=== PATIENT | male | born 1990 | race African-American/Black ===

== ENCOUNTER 2017-09-28 17:29 | Emergency (ER) | payer MEDICAID ==
[~2017-09-28] VITALS: Ht 182.9 cm; Wt 69.0 kg
[2017-09-28] MEDS ORDERED: HYDROCODONE/ACETAMINOPHEN 5/325MG TABLET PO ONE (18:30)
[2017-09-28] MEDS ORDERED: ONDANSETRON 4MG ODT PO ONE (20:45)
[2017-09-28 22:15] VITALS: BP 157/102
== END 2017-09-28 22:15 | disposition home or self-care (01) ==
LOC: ER 18:49
DX: S52.572A Other intraarticular fracture of lower end of left radius, initial encounter for closed fracture (principal); S52.615A Nondisplaced fracture of left ulna styloid process, initial encounter for closed fracture; W01.0XXA Fall on same level from slipping, tripping and stumbling without subsequent striking against object, initial encounter; Y93.51 Activity, roller skating (inline) and skateboarding; Y92.89 Other specified places as the place of occurrence of the external cause
CPT/HCPCS: 25605; 73090; 73110; 73130; 99284; Q0162; Z7610; A4565

== ENCOUNTER 2019-01-10 19:27 | Emergency (ER) | payer SELFPAY ==
[~2019-01-10] VITALS: Ht 177.8 cm; Wt 73.0 kg
[2019-01-10 22:30] VITALS: BP 150/100
== END 2019-01-10 23:45 | disposition home or self-care (01) ==
LOC: ER 23:38
DX: R20.2 Paresthesia of skin (principal); R10.32 Left lower quadrant pain; F12.10 Cannabis abuse, uncomplicated
CPT/HCPCS: 74018; 99283; Z7610